=== PATIENT | female | born 1975 | race Two or more races ===

== ENCOUNTER 2023-11-11 12:31 | Emergency (ER) | payer MEDICAID, OTHER ==
[~2023-11-11] VITALS: Ht 170.2 cm; Wt 77.1 kg
[2023-11-11] MEDS ORDERED: AMOX-430 PO (14:04)
[2023-11-11] MEDS ORDERED: IBUP-1955 PO (14:04)
[2023-11-11] MEDS ORDERED: AMOX/CLAVULANATE 875 MG TABLET ONE ×2 (14:20→14:21)
[2023-11-11] MEDS: AMOX/CLAVULANATE 875 MG TABLET PO ONE (14:22)
[2023-11-11] MEDS ORDERED: IBUPROFEN 600 MG TABLET ONE (14:36)
[2023-11-11] MEDS ORDERED: IBUPROFEN 400 MG TABLET ONE (14:38)
[2023-11-11] MEDS: IBUPROFEN 400 MG TABLET PO ONE (14:40)
[2023-11-11 15:19] VITALS: BP 124/68; TEMP 98.3; O2SAT 99
== END 2023-11-11 15:20 | disposition home or self-care (01) ==
LOC: ER 12:38
DX: S81.832A Puncture wound without foreign body, left lower leg, initial encounter (principal); Z60.2 Problems related to living alone; W54.0XXA Bitten by dog, initial encounter; Y93.89 Activity, other specified; Y92.89 Other specified places as the place of occurrence of the external cause; Y99.8 Other external cause status
CPT/HCPCS: 99283; 73590; A6403